=== PATIENT | male | born 2000 | race Caucasian/White ===

== ENCOUNTER 2021-07-15 03:20 | Emergency (ER) | payer SELFPAY ==
[~2021-07-15] VITALS: Ht 175.3 cm; Wt 94.3 kg
--- NOTE | 2021-07-15 03:40 | NUR ---
Dr. Chowdary at bedside for MSE.
[2021-07-15] MEDS ORDERED: AMOX500T2 PO (03:50)
[2021-07-15] MEDS ORDERED: DEXAMETHASONE SOD PHOSPHATE 4 MG INJ ONE (04:05)
--- NOTE | 2021-07-15 04:05 | NUR ---
Patient discharged to home in stable condition. Written and verbal after care instructions given. Patient verbalizes understanding of instructions. Stressed follow up or return to ER for worsening s/s. Patient out of ER with steady gait, no acute signs of distress, VSS, all belongings taken.
[2021-07-15 04:06] VITALS: BP 123/72
[2021-07-15] MEDS ORDERED: AMOXicillin 250 MG CAPSULE ONE (04:06)
[2021-07-15] MEDS: DEXAMETHASONE SOD PHOSPHATE 4 MG INJ IM ONE (04:11)
[2021-07-15] MEDS: AMOXICILLIN 250 MG/5 ML SUSPENSION 150ML BOTTLE PO ONE (04:12)
== END 2021-07-15 04:06 | disposition home or self-care (01) ==
LOC: ER 03:28
DX: J02.9 Acute pharyngitis, unspecified (principal); Z79.2 Long term (current) use of antibiotics
CPT/HCPCS: 96372; 99283; J1100; A4663